=== PATIENT | female | born 1960 | race Caucasian/White ===

== ENCOUNTER 2016-12-15 12:35 | Emergency (ER) | payer OTHER ==
[~2016-12-15] VITALS: Wt 89.0 kg
[~2016-12-15 12:35] MED LIST: CIPR500T4 PO; ONDA4TAB8 PO
[2016-12-15] MEDS ORDERED: LIDOCAINE 2% (MDV) 20 ML INJ INJ ONE (15:30)
[2016-12-15] MEDS ORDERED: BACTDS PO (16:07)
[2016-12-15] MEDS ORDERED: CEPH-443 PO (16:07)
[2016-12-15] MEDS ORDERED: IBUP-1542 PO (16:08)
--- NOTE | 2016-12-15 16:19 | ERD ---
ER Documentation Chief Complaint Date/Time DATE: 12/15/16 TIME: 16:14 Chief Complaint ABSCESS TO UPPER BACK HPI This is a 56-year-old female presents to the ER with an abscess to her upper back. Patient states that 3 years ago she has noticed a small bump in her upper back and not 4 months ago her daughter was trying to pop it. 2 days ago patient states that the area became more painful and red and that it is painful with movement. Patient denies any fevers or chills. Pain is described as throbbing in quality it is constant and severe. She has not tried any medication for the pain. ROS 12 point review of systems was done, all negative except per HPI. Medications Home Meds Active Scripts Ibuprofen* (Ibuprofen*) 600 Mg Tablet, 600 MG PO Q6 for 3 Days, TAB Prov:YO RAMOS 12/15/16 Cephalexin* (Keflex*) 500 Mg Capsule, 500 MG PO BID for 7 Days, CAP Prov:YO RAMOS 12/15/16 Sulfamethoxazole-Trimethoprim* (Bactrim* DS) 800-160 Mg Tab, 1 TAB PO BID for 7 Days, TAB Prov:YO RAMOS 12/15/16 Ciprofloxacin Hcl* (Ciprofloxacin Hcl*) 500 Mg Tablet, 500 MG PO BID for 3 Days , TAB Prov:MARIANO KEENAN MD 06/19/16 Ondansetron Hcl* (Zofran*) 4 Mg Tablet, 4 MG PO Q6H for NAUSEA AND/OR VOMITING, #10 TAB Prov:MARIANO KEENAN MD 06/19/16 Allergies Allergies: Coded Allergies: No Known Allergy (Unverified , 06/19/16) PMhx/Soc History of Surgery: Yes (kidney stones) Anesthesia Reaction: No Hx Neurological Disorder: No Hx Respiratory Disorders: No Hx Cardiac Disorders: No Hx Psychiatric Problems: No Hx Miscellaneous Medical Probl: Yes (DM) Hx Alcohol Use: No Hx Substance Use: No Hx Tobacco Use: No Physical Exam Vitals Vital Signs Date Time Temp Pulse Resp B/P Pulse Ox O2 Delivery O2 Flow Rate FiO2 12/15/16 12:39 98.0 76 18 171/88 99 Physical Exam GENERAL: The patient is well developed and appropriate for usual state of health , in no apparent distress. HEENT: Atraumatic. CHEST: Clear to auscultation bilaterally. There are no rales, wheezes or rhonchi. HEART: Regular rate and rhythm. No murmurs, clicks, rubs or gallops. NEURO: Alert and oriented. SKIN: There is a 3 cm x 4 cm fluctuant abscess on the upper left side of the back. Results 24 hrs Current Medications Medications (Trade) Dose Ordered Sig/Jackeline Route PRN Reason Start Time Stop Time Status Last Admin Dose Admin Lidocaine (Xylocaine 2% (Mdv) 20 ml) 20 ml ONCE ONCE INJ 12/15/16 15:30 12/15/16 15:31 DC Procedures/MDM Abscess Incision and Drainage with irrigation by me: Location: Left upper back Anesthesia: [Local 2% Lidocaine] Technique: [Irrigated. Disrupted loculations w/ instrumentation ] Packing: Quarter inch Complications: [Neurovascularly intact post procedure] 48 hour wound check. Scar minimization instructions given. Patient's skin symptoms have stabilized while they have been evaluated in the department and are appropriate for outpatient care and work up. Exam and w/u not consistent w/ sepsis, deep space infection, or foreign body. Patient will be sent home with Keflex and with Bactrim. She is to follow-up within 48 hours return to ER sooner if symptoms worsen. My medical decision was shared with the patient she understands and agrees with plan. Departure Diagnosis: Primary Impression: Abscess Condition: Stable Patient Instructions: Abscess, Incision And Drainage Referrals: CUONG LOPEZ E (PCP) Additional Instructions: Regrese a estas instalaciones dentro de [facility] para un examen de seguimiento.Regrese antes si medina condicin se empeora. YO RAMOS Dec 15, 2016 16:19
== END 2016-12-15 16:08 | disposition home or self-care (01) ==
LOC: FTE 12:35
DX: L02.212 Cutaneous abscess of back [any part, except buttock and flank] (principal); E11.9 Type 2 diabetes mellitus without complications
CPT/HCPCS: 10061; Z7502; Z7610

== ENCOUNTER 2016-12-17 15:26 | Emergency (ER) | payer OTHER ==
[~2016-12-17] VITALS: Ht 149.9 cm; Wt 87.0 kg
[~2016-12-17 15:26] MED LIST changes: +BACTDS PO; +CEPH-443 PO; +IBUP-1542 PO
[2016-12-17 15:47] VITALS: Ht 149.9 cm; Wt 87.0 kg
--- NOTE | 2016-12-17 16:39 | ERD ---
ER Documentation Chief Complaint Date/Time DATE: 12/17/16 TIME: 16:36 Chief Complaint Back cyst ID [id number] follow up. No fever, no s/s infection. HPI Patient is a 56-year-old female here for wound check. She states that 2 days ago she had an abscess drained. She is currently taking antibiotics is taking them as prescribed. She denies fever or chills. She denies drainage or bleeding. She has no complaints today. ROS All systems reviewed and are negative except as per history of present illness. Medications Home Meds Active Scripts Ibuprofen* (Ibuprofen*) 600 Mg Tablet, 600 MG PO Q6 for 3 Days, TAB Prov:YO RAMOS 12/15/16 Cephalexin* (Keflex*) 500 Mg Capsule, 500 MG PO BID for 7 Days, CAP Prov:YO RAMOS 12/15/16 Sulfamethoxazole-Trimethoprim* (Bactrim* DS) 800-160 Mg Tab, 1 TAB PO BID for 7 Days, TAB Prov:YO RAMOS 12/15/16 Ciprofloxacin Hcl* (Ciprofloxacin Hcl*) 500 Mg Tablet, 500 MG PO BID for 3 Days , TAB Prov:MARIANO KEENAN MD 06/19/16 Ondansetron Hcl* (Zofran*) 4 Mg Tablet, 4 MG PO Q6H for NAUSEA AND/OR VOMITING, #10 TAB Prov:MARAINO KEENAN MD 06/19/16 Allergies Allergies: Coded Allergies: No Known Allergy (Unverified , 06/19/16) PMhx/Soc History of Surgery: Yes (kidney stones) Anesthesia Reaction: No Hx Neurological Disorder: No Hx Respiratory Disorders: No Hx Cardiac Disorders: No Hx Psychiatric Problems: No Hx Miscellaneous Medical Probl: Yes (DM) Hx Alcohol Use: No Hx Substance Use: No Hx Tobacco Use: No FmHx Family History: No coronary disease, No diabetes, No other Physical Exam Vitals Vital Signs Date Time Temp Pulse Resp B/P Pulse Ox O2 Delivery O2 Flow Rate FiO2 12/17/16 15:47 97.9 74 18 188/97 97 Physical Exam GENERAL: Well-developed, well-nourished female. Appears in no acute distress. HEAD: Normocephalic, atraumatic. EYES: Pupils are equally reactive bilaterally. EOMs grossly intact. No conjunctival erythema. ENT: Moist mucous membranes. No uvula deviation. No kissing tonsils. No exudates. NECK: Supple. No lymphadenopathy or thyromegaly. No meningismus. negative kernig. negative brudinski. LUNG: Clear to auscultation bilaterally. No rhonchi, wheezing, rales or coarse breath sounds. HEART: Regular rate and rhythm. No murmurs, rubs or gallops. SKIN: Normal color. Warm and dry. Healing wound on the upper back. with mild induration Capillary refill < 2 seconds Procedures/MDM ER COURSE: I kept the patient and/or family informed of laboratory and diagnostic imaging results throughout the emergency room course. MEDICAL DECISION MAKING: This is a 56-year-old female who presents with wound check to her abscess. Vital signs were reviewed. Patient is afebrile. Patient is not hypoxic. Patient is not toxic or ill-appearing. Patient has a healing abscess. I removed the packing. No complications. Low suspicion for necrotizing fasciitis , SJS, toxic epidermal necrolysis, Kawasaki, erythema multiforme, gangrene, scarlet fever, meningococcemia, sepsis, anaphylaxis, sepsis, deep space infection, or foreign body. DISCHARGE: At this time, patient is stable for discharge and outpatient management with no new complaints during the ER course. Patient was sent home with instructions to continue taking antibiotics as prescribed and to return in 2 days for wound check.. Patient will be discharged home with instructions to recheck for new or worsening symptoms such as fever, nausea, weakness, LOC and to follow up with primary care in the next 1-2 days. Patient was advised to return to the ER for any new or worsening symptoms. Plan was discussed and patient and/or family understands and agrees. Home instructions were given. Departure Diagnosis: Primary Impression: Encounter for wound re-check Condition: Stable Patient Instructions: Abscess, Packing Removal Referrals: CUONG LOPEZ (PCP) Additional Instructions: Llame al doctor OLIVIA y tatianna kesha JASPER PARA DENTRO DE 1-2 MOORE.Dgale a la secretaria que nosotros le instruimos hacer esta jasper.Avise o llame si medina condicin se empeora antes de la jasper. Regresa aqui si peor o no mejor. RICHARD HANDLEY PA-C Dec 17, 2016 16:39
== END 2016-12-17 17:51 | disposition home or self-care (01) ==
LOC: E/R 15:26
DX: Z48.01 Encounter for change or removal of surgical wound dressing (principal); E11.9 Type 2 diabetes mellitus without complications
CPT/HCPCS: 99281

== ENCOUNTER 2016-12-25 14:25 | Emergency (ER) | payer OTHER ==
[~2016-12-25] VITALS: Ht 165.1 cm; Wt 87.0 kg
[2016-12-25 14:30] VITALS: Ht 165.1 cm; Wt 87.0 kg
[2016-12-25] MEDS ORDERED: HC1C30 TOP (14:41)
--- NOTE | 2016-12-25 15:10 | ERD ---
ER Documentation Chief Complaint Date/Time DATE: 12/25/16 TIME: 15:10 Chief Complaint 8 day wound check after abscess I&D HPI This is a 56-year-old female with a history of infected sebaceous cyst on her upper back that was I&D 10 days ago on December 15, 2016 at this facility presenting to the emergency department for a chief complaint of itchiness at the site for the past 2 weeks. Patient denies any pain, rating it 0 out of 10. Patient states that she was given Keflex and Bactrim for 7 days and completed the antibiotic course. She returned 2 days after the I&D for a wound check and she was doing better. Patient denies any fever or pain however she states that he still has been itchy. Patient states that she has had this bump on her upper back for the past 4 years ROS All systems reviewed and are negative except as per history of present illness. Medications Home Meds Active Scripts Hydrocortisone* Topical (Hydrocortisone* Topical) 1%-28.35 Gm Cream..g., 1 APPLIC TOP Q6 Y for ITCHING for 5 Days, #1 TUB Prov:JILL HENRY PA-C 12/25/16 Ibuprofen* (Ibuprofen*) 600 Mg Tablet, 600 MG PO Q6 for 3 Days, TAB Prov:YO RAMOS 12/15/16 Cephalexin* (Keflex*) 500 Mg Capsule, 500 MG PO BID for 7 Days, CAP Prov:YO RAMOS 12/15/16 Sulfamethoxazole-Trimethoprim* (Bactrim* DS) 800-160 Mg Tab, 1 TAB PO BID for 7 Days, TAB Prov:YO RAMOS 12/15/16 Ciprofloxacin Hcl* (Ciprofloxacin Hcl*) 500 Mg Tablet, 500 MG PO BID for 3 Days , TAB Prov:MARIANO KEENAN MD 06/19/16 Ondansetron Hcl* (Zofran*) 4 Mg Tablet, 4 MG PO Q6H for NAUSEA AND/OR VOMITING, #10 TAB Prov:MARIANO KEENAN MD 06/19/16 Allergies Allergies: Coded Allergies: No Known Allergy (Unverified , 12/25/16) PMhx/Soc History of Surgery: Yes (kidney stones) Anesthesia Reaction: No Hx Neurological Disorder: No Hx Respiratory Disorders: No Hx Cardiac Disorders: No Hx Psychiatric Problems: No Hx Miscellaneous Medical Probl: Yes (DM) Hx Alcohol Use: No Hx Substance Use: No Hx Tobacco Use: No Physical Exam Vitals Vital Signs Date Time Temp Pulse Resp B/P Pulse Ox O2 Delivery O2 Flow Rate FiO2 12/25/16 14:30 98.4 78 19 201/89 78 Physical Exam General: WD/WN, in no apparent distress, non-toxic appearing HENT: NC/AT Eyes: Conjunctiva normal Neck: Supple Pulm: Clear to auscultation, normal labored breathing; no wheezing/rales/ rhonchi heard CV: Good capillary refill GI: Non-distended, no guarding Back: No masses Ext: No clubbing, cyanosis, or edema Neuro: Moves on all fours Skin: hypertrophic papule 2 x 2 cm on her upper back without any evidence of fluctuance, warmth, erythema or drainage Psych: Normal mood Procedures/MDM This is a 56-year-old female with a history of infected sebaceous cyst on her upper back that was I&D 10 days ago on December 15, 2016 at this facility presenting to the emergency department for a chief complaint of itchiness at the site for the past 2 weeks. Patient denies any pain, rating it 0 out of 10. Patient states that she was given Keflex and Bactrim for 7 days and completed the antibiotic course. She returned 2 days after the I&D for a wound check and she was doing better. Patient states that she has had this bump on her upper back for the past 4 years. This is likely a sebaceous cyst that was infected and created an abscess 10 days ago. On examination there was no evidence of abscess, cellulitis, lymphangitis. It appears to be a sebaceous cyst that is healing therefore it is most likely causing her to have itchiness. I discussed with patient that she will need to follow-up with a adobe block maker or other surgeon to remove the sebaceous cyst since it may get infected recurrently. I have given her prescription of low- dose hydrocortisone 1% for the itchiness and discuss to follow-up with her primary care physician. I discussed return to the ER for any worsening signs or symptoms. Patient understands and agrees with this plan. She is stable for discharge Departure Diagnosis: Primary Impression: Encounter for wound re-check Additional Impression: Sebaceous cyst Condition: Stable Patient Instructions: Post Op Wound Check, General Referrals: JESSICA,CUONG E (PCP) Additional Instructions: Visite a medina mdico ashly para un EXAMEN.Regrese a estas instalaciones si no se mejora kevin esperbamos o kevin le dijimos. [place] toda la medicina iftikhar y kevin se le indic. Regrese a estas instalaciones si no se mejora kevin esperbamos o kevin le dijimos. JILL HENRY PA-C Dec 25, 2016 15:10
== END 2016-12-25 18:17 | disposition home or self-care (01) ==
LOC: E/R 14:25
DX: Z48.01 Encounter for change or removal of surgical wound dressing (principal); L72.3 Sebaceous cyst; E11.9 Type 2 diabetes mellitus without complications
CPT/HCPCS: 99283

== ENCOUNTER 2017-03-13 16:54 | Emergency (ER) | payer OTHER ==
[~2017-03-13] VITALS: Ht 157.5 cm; Wt 88.0 kg
[~2017-03-13 16:54] MED LIST changes: +HC1C30 TOP
[2017-03-13 16:56] VITALS: Ht 157.5 cm; Wt 88.0 kg
[2017-03-13] MEDS ORDERED: METGEL45 TOP (17:22)
[2017-03-13] MEDS ORDERED: HC30CR25 TOP (17:23)
[2017-03-13] MEDS ORDERED: DOXY100T20 PO (17:23)
--- NOTE | 2017-03-13 17:28 | ERD ---
ER Documentation Chief Complaint Date/Time DATE: 03/13/17 TIME: 17:25 Chief Complaint ITCHY RASH ON FACE AND SCALP HPI This a 56 year-old female who presents to the emergency department today for a rash on her face that started yesterday. She is here with her daughter who states that her nose is always been slightly red but rash has been worse for the past 2 days. Denies any new detergents, new soaps, new medications. Denies any fevers or chills ROS All systems reviewed and are negative except as per history of present illness. Medications Home Meds Active Scripts Hydrocortisone* Topical (Hydrocortisone* Topical) 2.5%-28.3 Gm Cream..g., 1 APPLIC TOP BID for 7 Days, #1 TUB Prov:ALLA QUEZADA PA-C 03/13/17 Doxycycline Hyclate* (Doxycycline Hyclate*) 100 Mg Tablet.dr, 100 MG PO BID for 7 Days, TAB Prov:ALLA QUEZADA PA-C 03/13/17 Metronidazole* (Metrogel*) 0.75% -45 Gram Gel, 1 APPLIC TOP BID for 7 Days, #1 TUB Prov:ALLA QUEZADA PA-C 03/13/17 PMhx/Soc Medical and Surgical Hx: pt denies Medical Hx, pt denies Surgical Hx History of Surgery: Yes (kidney stones) Anesthesia Reaction: No Hx Neurological Disorder: No Hx Respiratory Disorders: No Hx Cardiac Disorders: No Hx Psychiatric Problems: No Hx Miscellaneous Medical Probl: Yes (DM) Hx Alcohol Use: No Hx Substance Use: No Hx Tobacco Use: No Smoking Status: Never smoker Physical Exam Vitals Vital Signs Date Time Temp Pulse Resp B/P Pulse Ox O2 Delivery O2 Flow Rate FiO2 03/13/17 16:56 98.8 86 18 174/81 99 Physical Exam Const: No acute distress Head: Atraumatic Eyes: Normal Conjunctiva ENT: Normal External Ears, Nose and Mouth. Neck: Full range of motion..~ No meningismus. Resp: Clear to auscultation bilaterally Cardio: Regular rate and rhythm, no murmurs Abd: Soft, non tender, non distended. Normal bowel sounds Skin: Erythematous rash over patient's cheek bones brows with very tiny small pustules. Neur: Awake and alert Psych: Normal Mood and Affect Procedures/MDM This is a 56-year-old female who presents the emergency department today for a rash for the past 2 days. Patient had localized erythema over her bilateral cheeks nose and above her eyebrows with very tiny pustules. I did have Dr. Cooper see and evaluate the patient he feels that is most likely rosacea versus folliculitis. Patient is afebrile and otherwise well-appearing. Low suspicion for sepsis, cellulitis, deep space infection, SJS, viral exanthem. Patient was given a prescription for Metro gel, doxycycline and hydrocortisone cream At this time the patient is stable for discharge and outpatient management. Patient should follow up with their PCP in the next 1-2 days. They may return to the emergency department sooner for any persistent or worsening of symptoms. Patient and daughter understood and agreed with the plan. Departure Diagnosis: Primary Impression: Rash and other nonspecific skin eruption Condition: Fair Patient Instructions: Self-Care for Skin Rashes, Rosacea Referrals: CUONG LOPEZ E (PCP) Additional Instructions: Llame al doctor OLIVIA y tatianna kesha JASPER PARA DENTRO DE 1-2 MOORE.Dgale a la secretaria que nosotros le instruimos hacer esta jasper.Avise o llame si medina condicin se empeora antes de la jasper. Regresa aqui si peor o no mejor. Take medications as prescribed ALLA QUEZADA PA-C Mar 13, 2017 17:27
== END 2017-03-13 17:34 | disposition home or self-care (01) ==
LOC: MERGE 16:54 → FTE 16:54
DX: R21 Rash and other nonspecific skin eruption (principal); E11.9 Type 2 diabetes mellitus without complications
CPT/HCPCS: 99284

== ENCOUNTER 2017-07-30 08:26 | Emergency (ER) | payer OTHER ==
[~2017-07-30] VITALS: Ht 152.4 cm; Wt 88.5 kg
[~2017-07-30 08:26] MED LIST changes: +DOXY100T20 PO; +HC30CR25 TOP; +METGEL45 TOP
[2017-07-30 08:29] VITALS: Ht 152.4 cm; Wt 88.5 kg
[2017-07-30] MEDS ORDERED: KETOROLAC 30 MG INJ IM STA (08:40)
--- NOTE | 2017-07-30 09:03 | ERD ---
ER Documentation Chief Complaint Chief Complaint left knee pain x 2 months; got worse last firday; hypertension HPI 56y/o female patient with history of hypertension and obesity, presents to the emergency department with her daughter c/o gradual onset of left knee pain, constant, located at medial side of the knee, that started 2 months ago but got worse during the last 3 days. The pain is dull, rated 7/10, without radiation. The symptoms are probably caused by overused and are associated with mild swelling. Aggravating factors: Kneeling down. Alleviating factors: ice and rest. Denies erythema, limping fever, chills, N/V/D. Treatment attempted: Ice. Previous evaluation: None. ROS SYSTEMIC symptoms: no fever, chills, no night sweats, no weight loss EYE symptoms: No blurred vision, no eye discharge OTOLARYNGEAL symptoms: No hearing loss. No ear pain, no sore throat CARDIOVASCULAR symptoms: No chest pain or discomfort, no palpitations. PULMONARY symptoms: No dyspnea, no cough, no wheezing. GASTROINTESTINAL symptoms: No abdominal pain, no nausea, no vomiting, no diarrhea MUSCULOSKELETAL symptoms: Generalized arthralgias. NEUROLOGY symptoms: No confusion, no syncope, no numbness or tingling. SKIN no rashes Medications Home Meds Active Scripts Ibuprofen* (Motrin*) 600 Mg Tab, 600 MG PO Q8, #30 TAB Prov:JHONNY MARIO MD 07/30/17 Hydrocortisone* Topical (Hydrocortisone* Topical) 2.5%-28.3 Gm Cream..g., 1 APPLIC TOP BID for 7 Days, #1 TUB Prov:ALLA QUEZADA PA-C 03/13/17 Doxycycline Hyclate* (Doxycycline Hyclate*) 100 Mg Tablet.dr, 100 MG PO BID for 7 Days, TAB Prov:ALLA QUEZADA PA-C 03/13/17 Metronidazole* (Metrogel*) 0.75% -45 Gram Gel, 1 APPLIC TOP BID for 7 Days, #1 TUB Prov:ALLA QUEZADA PA-C 03/13/17 Hydrocortisone* Topical (Hydrocortisone* Topical) 1%-28.35 Gm Cream..g., 1 APPLIC TOP Q6 Y for ITCHING for 5 Days, #1 TUB Prov:JILL HENRY PA-C 12/25/16 Ibuprofen* (Ibuprofen*) 600 Mg Tablet, 600 MG PO Q6 for 3 Days, TAB Prov:YO RAMOS 12/15/16 Cephalexin* (Keflex*) 500 Mg Capsule, 500 MG PO BID for 7 Days, CAP Prov:YO RAMOS 12/15/16 Sulfamethoxazole-Trimethoprim* (Bactrim* DS) 800-160 Mg Tab, 1 TAB PO BID for 7 Days, TAB Prov:YO RAMOS 12/15/16 Ciprofloxacin Hcl* (Ciprofloxacin Hcl*) 500 Mg Tablet, 500 MG PO BID for 3 Days , TAB Prov:MARIANO KEENAN MD 06/19/16 Ondansetron Hcl* (Zofran*) 4 Mg Tablet, 4 MG PO Q6H for NAUSEA AND/OR VOMITING, #10 TAB Prov:MARIANO KEENAN MD 06/19/16 Allergies Allergies: Coded Allergies: No Known Allergy (Unverified , 12/25/16) PMhx/Soc History of Surgery: Yes (kidney stones) Anesthesia Reaction: No Hx Neurological Disorder: No Hx Respiratory Disorders: No Hx Cardiac Disorders: No Hx Psychiatric Problems: No Hx Miscellaneous Medical Probl: Yes (DM) Hx Alcohol Use: No Hx Substance Use: No Hx Tobacco Use: No Smoking Status: Never smoker Physical Exam Vitals Vital Signs Date Time Temp Pulse Resp B/P Pulse Ox O2 Delivery O2 Flow Rate FiO2 07/30/17 08:29 98.3 98 19 212/88 98 Physical Exam Patient is in no acute distress, vital signs stable. Alert and fully oriented. EYES: PERRLA, EOMI, Sclera and conjunctiva appear normal. EARS: Canals clear, tympanic membranes WNL THROAT: Normal oropharynx. NECK: Supple, No lymphadenopathy. Full ROM without pain or tenderness. HEART: RRR, no rubs, murmurs, clicks or gallops. LUNGS: Clear to auscultation. EXTREMITIES: No edema bilaterally. Knee: Normal inspection, full ROM, no deformity, tenderness over the medial side with mild crepitus NEURO: Cranial nerves grossly intact, no motor or sensory deficit Results 24 hrs Current Medications Medications (Trade) Dose Ordered Sig/Jackeline Route PRN Reason Start Time Stop Time Status Last Admin Dose Admin Ketorolac Tromethamine (Toradol) 30 mg ONCE STAT IM 07/30/17 08:40 07/30/17 08:43 DC 07/30/17 08:46 Procedures/MDM 56y/o female patient with history of obesity and hypertension, presents to the ED c/o left knee pain for 2 months, that got worse during the last 4 days. Vital signs stable, Physical exam unremarkable, knee exam revealed mild swelling with crepitus. Differential diagnosis include but not limited to: Arthritis, overused injury, ligament/tendon injury, meniscus injury. Less likely fracture, low suspicion for septic arthritis. Pertinent Data: Radiology: [place] [id number] Radiology Main Line: [phone] DIAGNOSTIC IMAGING REPORT Patient: LUCIANO COBOS : 1960 Age: 56 Sex: F MR #: [id number] DOS: 07/30/17 0840 Ordering MD: JHONNY MARIO MD Location: [facility]TE Room/Bed: PROCEDURE: XR Knee. CLINICAL INDICATION: Knee pain TECHNIQUE: Three views of the left knee are available for review. COMPARISON: None available FINDINGS: Marginal osteophyte formation and subchondral sclerosis seen at the femoral tibial compartments. Mild narrowing is seen at the lateral and medial femorotibial compartments with interval progression. Mild narrowing narrowing is seen at the patellofemoral compartment. No acute osseous abnormality. Small joint effusion. IMPRESSION: 1. Mild tricompartmental knee arthrosis. 2. No acute fracture or dislocation is seen. 3. Small joint effusion. RPTAT: VV .Rafal Keene MD, MD Date Time Electronically viewed and signed by .Rafal Keene MD, on 07/30/2017 09:13 .d/ CC: JHONNY MARIO MD Physical examination and clinical presentation consistent most likely with overused injury with underlying osteoarthritis. During the ED course the patient received treatment with Toradol IM presenting overall improvement of the symptoms. Results and clinical impression discussed with patient who agrees with management. The patient is stable to be treated outpatient and will be discharged home with a Rx for ibuprofen, rest, ice, elevation. Side effects of prescribed medications (headache, rash, nausea, vomiting, diarrhea) were reviewed. Side effects of prescribed NSAID medication (GI distress, edema, bleeding, HTN) were reviewed. The patient was instructed to follow up with the primary care provider in the next 48h. If symptoms persist, worsen or new symptoms develop, then patient should return to the ED immediately. Instructions explained and given to patient in [[place]] with acknowledgment and demonstrated understanding. Disclaimer: Inadvertent spelling and grammatical errors are likely due to EHR/ dictation software use and do not reflect on the overall quality of patient care. Also, please note that the electronic time recorded on this note does not necessarily reflect the actual time of the patient encounter. Departure Diagnosis: Primary Impression: Overuse injury Additional Impression: Arthrosis of knee Condition: Stable Additional Instructions: Muchas tammy por [facility] para medina servicio. Esperamos que en medina visita a la prasanna de emergencia medina problema medico haya sido solucionado y que se sienta mucho mejor. Para estar seguros que medina mejoria sigue en proceso, le pedimos el favor de hacer kesha eliu de seguimiento medico con medina doctor primario en los proximos 2-4 burkett. Lleve con usted estos documentos y las medicinas recetadas. Si minh sintomas empeoran y no puede deanna a medina doctor, por favor regrese a prasanna de emergencia. En bekah que usted no tenga un mdico de atencin primaria: Llame al mdico o clnica comunitaria de referencia que aparece abajo eric las horas de consultorio para hacer kesha eliu para que le vean. CLINICAS: [facility] [phone] [address] [facility] [phone] [address] [facility] [phone] [address] [facility] [phone] [address] [facility] [phone] [address] [facility]. [phone] MD Jul 30, 2017 08:57
--- NOTE | 2017-07-30 09:13 | RADRPT ---
PROCEDURE: XR Knee. CLINICAL INDICATION: Knee pain TECHNIQUE: Three views of the left knee are available for review. COMPARISON: None available FINDINGS: Marginal osteophyte formation and subchondral sclerosis seen at the femoral tibial compartments. Mi ld narrowing is seen at the lateral and medial femorotibial compartments with interval progression. Mild narrowing narrowing is seen at the patellofemoral compartment. No acute osseous abnormality. Small joint effusion. IMPRESSION: 1. Mild tricompartmental knee arthrosis. 2. No acute fracture or dislocation is seen. 3. Small joint effusion. RPTAT: VV .Rafal Keene MD, MD Date Time Electronically viewed and signed by .Rafal Keene MD, MD on 07/30/2017 09:13 .d/
[2017-07-30] MEDS ORDERED: IBUP-1542 PO (09:33)
== END 2017-07-30 10:04 | disposition home or self-care (01) ==
LOC: FTE 08:26
DX: M70.962 Unspecified soft tissue disorder related to use, overuse and pressure, left lower leg (principal); E11.9 Type 2 diabetes mellitus without complications; I10 Essential (primary) hypertension; M17.9 Osteoarthritis of knee, unspecified; Y93.9 Activity, unspecified
CPT/HCPCS: 73560; J1885; 96372

== ENCOUNTER 2018-05-23 08:38 | Emergency (ER) | END 2018-05-23 11:05 | disposition home or self-care (01) ==